=== PATIENT | female | born 1940 | race Caucasian/White ===

== ENCOUNTER 2017-04-07 17:15 | Emergency (ER) | payer MEDICARE ==
[~2017-04-07] VITALS: Ht 170.2 cm; Wt 80.0 kg
[~2017-04-07 17:15] MED LIST: ACCOLATE20 MG PO; ANTIVERT12.5 MG PO; ASPIRIN EC81 MG PO; ASPIRIN325 MG PO; BACTRIM DS1 TAB PO; CALCIUM PO; CITRACAL/D PO; CRESTOR10 MG PO; CRESTOR5 MG PO; FISH OIL MAXI1200 M1 PO; FLAXSEED OIL1200 MG PO; FLEXERIL10 MG PO; FLOMAX0.4 M1 PO; FLONASE NASAL50 MCG; KEFLEX250 MG PO; LISINOPRIL10 MG PO; LORTAB 7.5 OR; LORTAB 7.5 PO; LOTEMAX0.52 OU; LOTRISONE CREAM15 G1 EX; LOVASTATIN20 MG PO; MACROBID100 MG PO; MACRODANTIN100 MG OR; MACRODANTIN100 MG PO; METFORMIN500 MG PO; METO50TA52 PO; MIRAPEX0.5 MG PO; PHENERGAN25 MG/TAB PO; PYRIDIUM200 MG PO; RESTASIS0.05 % OU; SYSTANE BAL OP; THERACRAN650 MG PO; VITAMIN D-32000 UNI1 PO; VITAMIN PO; ZOFRAN ODT4 MG PO; [UNRECOGNIZED DRUG - OTHER] PO
[2017-04-07] MEDS ORDERED: OMNICEF300 M1 PO (17:57)
[2017-04-07] MEDS ORDERED: LEFLUNOMIDE20 MG PO (17:58)
[2017-04-07] MEDS ORDERED: MONTELUKAST SOD10 MG PO (17:58)
[2017-04-07 17:59] LABS: URINE BILIRUBIN - DIPSTICK NEGATIVE (NEGATIVE); URINE BLOOD DIPSTICK SMALL (NEGATIVE); URINE CLARITY TURBID; URINE COLOR YELLOW; URINE GLUCOSE - DIPSTICK NEGATIVE (NEGATIVE); URINE KETONE NEGATIVE (NEGATIVE); URINE LEUK ESTERASE MODERATE (NEGATIVE); URINE NITRITE - DIPSTICK NEGATIVE (Negative); URINE PH 5.5 (4.5-8.0); URINE PROTEIN - DIPSTICK NEGATIVE (NEG-TRACE); URINE UROBILINOGEN - DIPSTICK 0.2 E.U./dL (0.2)
[2017-04-07] MEDS ORDERED: FOLIC ACID1 MG PO (17:59)
[2017-04-07] MEDS ORDERED: METFORMIN500 M2 PO (17:59)
[2017-04-07] MEDS ORDERED: PREDNISONE5 MG PO (17:59)
[2017-04-07] MEDS ORDERED: METHOTREXA50 MG/2 ML SC (18:00)
[2017-04-07] MEDS ORDERED: HUMIRA PEN40 MG/0.8 (18:00)
[2017-04-07 18:08] LABS: URINE BACTERIA FEW hpf; URINE SQUAMOUS EPITHELIAL CELL FEW EPI/hpf (0-FEW); URINE WBC 50-100 WBC/hpf (0-5)
[2017-04-07 18:15] VITALS: BP 132/70
== END 2017-04-07 18:15 | disposition home or self-care (01) ==
LOC: ED 17:15
PROVIDERS: Family Medicine
DX: N39.0 Urinary tract infection, site not specified (principal); I10 Essential (primary) hypertension; Z87.440 Personal history of urinary (tract) infections; B96.20 Unspecified Escherichia coli [E. coli] as the cause of diseases classified elsewhere

== ENCOUNTER 2018-03-10 05:08 | Emergency (ER) | payer MEDICARE ==
[~2018-03-10] VITALS: Ht 170.2 cm; Wt 73.6 kg
[~2018-03-10 05:08] MED LIST changes: +FOLIC ACID1 MG PO; +HUMIRA PEN40 MG/0.8; +LEFLUNOMIDE20 MG PO; +METFORMIN500 M2 PO; +METHOTREXA50 MG/2 ML SC; +MONTELUKAST SOD10 MG PO; +OMNICEF300 M1 PO; +PREDNISONE5 MG PO
[2018-03-10] MEDS ORDERED: ENBREL25 MG SC (05:21)
[2018-03-10 05:30] LABS: URINE BILIRUBIN - DIPSTICK NEGATIVE (NEGATIVE); URINE BLOOD DIPSTICK TRACE-INTACT (NEGATIVE); URINE COLOR YELLOW; URINE GLUCOSE - DIPSTICK NEGATIVE (NEGATIVE); URINE KETONE NEGATIVE (NEGATIVE); URINE PROTEIN - DIPSTICK NEGATIVE (NEG-TRACE); URINE UROBILINOGEN - DIPSTICK 0.2 E.U./dL (0.2)
[2018-03-10 05:33] LABS: URINE CLARITY CLOUDY; URINE LEUK ESTERASE MODERATE (NEGATIVE); URINE NITRITE - DIPSTICK POSITIVE (Negative)
[2018-03-10 05:37] LABS: URINE BACTERIA MANY hpf; URINE MUCUS FEW hpf (NONE-FEW); URINE RBC 0-2 RBC/hpf (0-5); URINE SQUAMOUS EPITHELIAL CELL FEW EPI/hpf (0-FEW); URINE WBC 20-50 WBC/hpf (0-5)
[2018-03-10] MEDS ORDERED: OMNICEF300 M1 PO (06:02)
[2018-03-10 06:10] VITALS: BP 168/91
== END 2018-03-10 06:10 | disposition home or self-care (01) ==
LOC: ED 05:08
PROVIDERS: Family Medicine
DX: N30.00 Acute cystitis without hematuria (principal); B96.1 Klebsiella pneumoniae [K. pneumoniae] as the cause of diseases classified elsewhere; R30.0 Dysuria

== ENCOUNTER 2019-03-05 12:56 | Emergency (ER) | payer MEDICARE ==
[~2019-03-05] VITALS: Ht 170.2 cm; Wt 76.0 kg
[~2019-03-05 12:56] MED LIST changes: +ENBREL25 MG SC
[2019-03-05] MEDS ORDERED: RESTASIS0.05 % OU (13:37)
[2019-03-05] MEDS ORDERED: TAMSULOSIN HCL0.4 MG PO (13:38)
[2019-03-05] MEDS ORDERED: MONTELUKAST SOD10 MG PO (13:38)
[2019-03-05] MEDS ORDERED: ACTEMRA162 MG/0.9 IJ (13:39)
[2019-03-05 13:40] VITALS: BP 164/93
== END 2019-03-05 13:40 | disposition home or self-care (01) ==
LOC: ED 12:56
DX: H11.32 Conjunctival hemorrhage, left eye (principal); Y92.009 Unspecified place in unspecified non-institutional (private) residence as the place of occurrence of the external cause

== ENCOUNTER 2021-02-02 12:49 | Emergency (ER) | payer MEDICARE ==
[~2021-02-02] VITALS: Ht 170.2 cm; Wt 72.7 kg
[~2021-02-02 12:49] MED LIST changes: +ACTEMRA162 MG/0.9 IJ; +TAMSULOSIN HCL0.4 MG PO
[2021-02-02 14:10] LABS: BASO% 0 % (0-3); EOS% 0 % (0-8); HEMATOCRIT 39.9 % (37.0-47.0); HEMOGLOBIN 13.4 g/dl (12.0-16.0); IMMATURE GRANULOCYTES 0.7 % (0.0-5.0); LYMPH% 19 % (15-41); MEAN CELL VOLUME 92.6 fL CALC (80.0-100.0); MEAN CORPUSCULAR HGB 31.1 pG CALC (26.0-32.0); MEAN CORPUSCULAR HGB CONC 33.6 g/dL CAL (32.0-36.0); MONO% 7 % (2-13); NEUT% 72 % (42-76); PLATELET COUNT 245 thou/uL (130-400); RED BLOOD COUNT 4.31 mill/uL (4.20-5.60); RED CELL DISTRI WIDTH 13.4 % (11.5-15.5)
[2021-02-02 14:20] LABS: ALKALINE PHOSPHATASE 65 u/l (38-126); ANION GAP 10 (6-22 (CALC)); BUN 24 mg/dL (8-23); BUN/CREATININE RATIO 32 (12-20 (CALC)); CARBON DIOXIDE 27 mmol/l (22-30); CHLORIDE 100 mmol/l (95-108); CREATININE 0.7 mg/dL (0.5-1.0); GFR > 60 ML/MIN (>=60 (CALC)); GFR FOR AFR.AMER. > 60 ML/MIN (>=60 (CALC)); LIPASE 262 u/l (23-300); POTASSIUM 4.2 mmol/l (3.5-5.1); SGOT/AST 21 u/l (9-36); SODIUM 132 mmol/l (137-146); TOTAL PROTEIN 6.2 g/dL (6.3-8.2)
[2021-02-02 14:25] LABS: BILIRUBIN, TOTAL 0.3 mg/dL (0.0-1.4)
[2021-02-02 14:36] LABS: PROTHROMBIN TIME 10.3 SECONDS (9.0-12.5)
[2021-02-02 19:01] VITALS: BP 146/76
== END 2021-02-02 19:02 | disposition short-term general hospital (02) ==
LOC: ED 12:49
PROVIDERS: Family Medicine
DX: K92.1 Melena (principal); M19.91 Primary osteoarthritis, unspecified site; E11.9 Type 2 diabetes mellitus without complications; M06.9 Rheumatoid arthritis, unspecified; Z79.84 Long term (current) use of oral hypoglycemic drugs; Z79.899 Other long term (current) drug therapy; Z79.82 Long term (current) use of aspirin

== ENCOUNTER 2022-08-01 17:09 | Emergency (ER) | payer MEDICARE ==
[~2022-08-01] VITALS: Ht 170.2 cm; Wt 67.3 kg
[2022-08-01 18:46] LABS: HEMATOCRIT 41.2 % (37.0-47.0); HEMOGLOBIN 13.4 g/dl (12.0-16.0); IMMATURE GRANULOCYTES 0.3 % (0.0-5.0); MEAN CORPUSCULAR HGB 30.2 pG CALC (26.0-32.0); MEAN CORPUSCULAR HGB CONC 32.5 g/dL CAL (32.0-36.0); NEUT# 7.95 thou/uL (2.00-7.15); RED BLOOD COUNT 4.43 mill/uL (4.20-5.60); RED CELL DISTRI WIDTH 14.3 % (11.5-15.5)
[2022-08-01 19:04] LABS: ALBUMIN 3.9 g/dL (3.2-5.0); ALKALINE PHOSPHATASE 97 u/l (38-126); ANION GAP 13 (6-22 (CALC)); BILIRUBIN, TOTAL 0.3 mg/dL (0.0-1.4); BUN 10 mg/dL (8-23); BUN/CREATININE RATIO 15 (12-20 (CALC)); CARBON DIOXIDE 33 mmol/l (22-30); CHLORIDE 99 mmol/l (95-108); CREATININE 0.7 mg/dL (0.5-1.0); GFR FOR AFR.AMER. > 60 ML/MIN (>=60 (CALC)); GFR OTHER RACES > 60 ML/MIN (>=60 (CALC)); POTASSIUM 3.4 mmol/l (3.5-5.1); SGOT/AST 27 u/l (9-36); SODIUM 141 mmol/l (137-146); TOTAL PROTEIN 5.8 g/dL (6.3-8.2)
[2022-08-01] MEDS ORDERED: OSELTAMIVIR PHO75 MG PO (19:11)
[2022-08-01] MEDS ORDERED: ZITHROMAX500 MG PO (19:11)
[2022-08-01 19:47] VITALS: BP 146/76
== END 2022-08-01 20:12 | disposition home or self-care (01) ==
LOC: ED 17:09
PROVIDERS: Emergency Medicine
DX: J10.1 Influenza due to other identified influenza virus with other respiratory manifestations (principal); E11.9 Type 2 diabetes mellitus without complications; M06.9 Rheumatoid arthritis, unspecified; Z79.84 Long term (current) use of oral hypoglycemic drugs; Z20.822 Contact with and (suspected) exposure to COVID-19